=== PATIENT | female | born 1985 | race Caucasian/White ===

== ENCOUNTER 2016-04-29 10:51 | Emergency (ER) | payer MEDICAID ==
[2016-04-29] MEDS ORDERED: HYDROcod/ACETAM 5/325 MG TABLET ONE (12:37)
[2016-04-29] MEDS ORDERED: HYDROcod/ACETAM 5/325 MG TABLET PO STA (12:37)
== END 2016-04-29 12:51 | disposition home or self-care (01) ==
DX: S90.31XA Contusion of right foot, initial encounter (principal); S90.414A Abrasion, right lesser toe(s), initial encounter; W20.8XXA Other cause of strike by thrown, projected or falling object, initial encounter; Z85.71 Personal history of Hodgkin lymphoma
CPT/HCPCS: 73630; 99283; A9270

== ENCOUNTER 2016-09-06 10:57 | Emergency (ER) | payer MEDICAID ==
[2016-09-06 11:07] VITALS: BP 114/69
[2016-09-06 12:05] LABS: BILIRUBIN,URINE NEGATIVE (NEGATIVE)
[2016-09-06 12:06] LABS: UA CHARGE (STRIP ONLY) YES; UR CULTURE IF IND NOT INDICATED
[2016-09-06 12:08] LABS: HCG UR QUAL NEGATIVE
--- NOTE | 2016-09-06 14:04 | ED Physician Documentation ---
PD HPI BACK PAIN - Stated complaint Stated Complaint: BACK PX - Chief complaint Chief Complaint: Back Pain - History obtained from History obtained from: Patient - History of Present Illness Timing - onset: Other (30-year-old woman with left-sided mid back pain radiating to the left mid abdomen since yesterday, it is worse with twisting and with rotation to the right. It is not associated with fevers, nausea, night sweats. It does not change with eating. She has had no changes in her bowel movements or urinary complaints. No hematuria. No possibility of .No recent weight loss.) Review of Systems Constitutional: denies: Fever, Chills Cardiac: denies: Chest pain / pressure, Palpitations Respiratory: denies: Dyspnea, Cough GI: denies: Nausea, Vomiting, Constipation, Diarrhea, Hematemesis, Bloody / black stool : denies: Dysuria, Frequency PD PAST MEDICAL HISTORY - Past Medical History Past Medical History: Yes Psych: Depression, Anxiety Other Past Medical History: autoimmune disease. stage 4 hodgkin's lymphoma. kidney disease - Past Surgical History Past Surgical History: Yes - Present Medications Home Medications: Ambulatory Orders Medication Instructions Recorded Confirmed HYDROcod/ACETAM 5/325 [[place] 5/325] 1 - 2 ea PO Q6H PRN #10 tablet 04/29/16 Sertraline [Zoloft] 100 mg PO DAILY 04/29/16 04/29/16 Cyclobenzaprine [Flexeril] 10 mg PO TID PRN #20 tablet 09/06/16 HYDROcod/ACETAM 5/325 [[place] 5/325] 1 - 2 ea PO Q6H PRN #15 tablet 09/06/16 - Allergies Allergies/Adverse Reactions: Allergies Allergy/AdvReac Type Severity Reaction Status Date / Time Penicillins Allergy Unknown Verified 04/29/16 10:57 Sulfa (Sulfonamide Allergy Unknown Verified 04/29/16 10:57 Antibiotics) - Social History Does the pt smoke?: No Smoking Status: Never smoker Does the pt drink ETOH?: Yes Does the pt have substance abuse?: No - Immunizations Immunizations are current?: Yes PD ED PE NORMAL - Vitals Vital signs reviewed: Yes - General General: Alert and oriented X 3, No acute distress - Neck Neck: Supple, no meningeal sign, No bony TTP - Abdomen Abdomen: Normal bowel sounds, Soft, Non tender - Back Back: No spinal TTP, Other (She is tender to the upper lateral paralumbar muscles on the left which re-creates her pain.) - Extremities Extremities: Other (The patient has equal and normal Achilles and patellar reflexes bilaterally. Normal sensation in all areas of the legs. Patient denies saddle anesthesia. Normal strength in flexion-extension at the ankles, knees, and flexion of the hips.) - Neuro Neuro: Alert and oriented X 3, Normal speech - Psych Psych: Normal mood, Normal affect Results - Vitals Vitals: Vital Signs - 24 hr 09/06/16 11:05 Temperature 36.4 C L Heart Rate 108 H Respiratory 18 Rate Blood Pressure 114/69 O2 Saturation 97 Oxygen O2 Source Room air - Labs Labs: Laboratory Tests 09/06/16 11:35 Urine Color LIGHT YELLOW Urine Clarity CLEAR Urine pH 6.0 Ur Specific [place] <=1.005 Urine Protein NEGATIVE Urine Glucose (UA) NEGATIVE Urine Ketones NEGATIVE Urine Occult Blood NEGATIVE Urine Nitrite NEGATIVE Urine Bilirubin NEGATIVE Urine Urobilinogen 0.2 (NORMAL) Ur Leukocyte Esterase NEGATIVE Ur Microscopic Review NOT INDICATED Urine Culture Comments NOT INDICATED Urine HCG, Qual NEGATIVE PD MEDICAL DECISION MAKING - ED course ED course: 30-year-old woman presents with apparently muscular back pain of the left side, although it radiates to the abdomen, there is no abdominal tenderness or other symptoms to suggest intra-abdominal etiology. Departure - Departure Disposition: 01 Home, Self Care Clinical Impression: Muscle strain of left upper back Qualifiers: Encounter type: initial encounter Qualified Code(s): S29.012A - Strain of muscle and tendon of back wall of thorax, initial encounter Condition: Good Record reviewed to determine appropriate education?: Yes Instructions: ED Spasm Back No Trauma Prescriptions: Cyclobenzaprine [Flexeril] 10 mg PO TID PRN #20 tablet PRN Reason: Pain HYDROcod/ACETAM 5/325 [[place] 5/325] 1 - 2 ea PO Q6H PRN #15 tablet PRN Reason: Pain Comments: Call your doctor to arrange a follow-up appointment, make the next available appointment. In the interim, return anytime if worse or if new symptoms develop. Do not drink or drive while taking narcotic pain medication. Note that many narcotic pain relievers also contain Tylenol/acetaminophen. Please ensure that your total dose of acetaminophen from all sources does not exceed 3 g (3000 mg) per day. You may get constipated while on this medication. Take a stool softener such as Colace twice a day while you are on it. Also add an [id number] laxative such as senna or MiraLAX on any day that you do not have a bowel movement. If you received a narcotic pain medication or sedative while in the emergency department, do not drive for the next 24 hours.
== END 2016-09-06 14:20 | disposition home or self-care (01) ==
LOC: ED 10:57
DX: S29.012A Strain of muscle and tendon of back wall of thorax, initial encounter (principal); X58.XXXA Exposure to other specified factors, initial encounter; C81.90 Hodgkin lymphoma, unspecified, unspecified site; N28.9 Disorder of kidney and ureter, unspecified
CPT/HCPCS: 81001; 81003; 81025; 87086; 99283

== ENCOUNTER 2016-09-08 17:43 | Emergency (ER) | payer MEDICAID ==
[2016-09-08 17:51] VITALS: BP 114/75
--- NOTE | 2016-09-08 18:01 | ED Physician Documentation ---
History of Present Illness - Stated complaint Stated Complaint: LT SIDE PX/RASH - Chief complaint Chief Complaint: General - History obtained from History obtained from: Patient - History of Present Illness Timing: Other (Seen by me 2 days ago for left-sided back and flank pain that seemed muscular at the time, but today developed a rash in the affected area.) Review of Systems Constitutional: denies: Fever, Chills : denies: Now EGA Neurologic: denies: Generalized weakness, Focal weakness PD PAST MEDICAL HISTORY - Past Medical History Past Medical History: Yes Psych: Depression, Anxiety - Past Surgical History Past Surgical History: Yes - Present Medications Home Medications: Ambulatory Orders Medication Instructions Recorded Confirmed HYDROcod/ACETAM 5/325 [[place] 5/325] 1 - 2 ea PO Q6H PRN #10 tablet 04/29/16 Sertraline [Zoloft] 100 mg PO DAILY 04/29/16 04/29/16 Cyclobenzaprine [Flexeril] 10 mg PO TID PRN #20 tablet 09/06/16 HYDROcod/ACETAM 5/325 [[place] 5/325] 1 - 2 ea PO Q6H PRN #15 tablet 09/06/16 Acyclovir 800 mg PO 5XD 10 Days 09/08/16 HYDROcod/ACETAM 5/325 [[place] 5/325] 1 - 2 ea PO Q6H PRN #15 tablet 09/08/16 predniSONE [Deltasone] 20 mg PO [id number] #21 tab 09/08/16 - Allergies Allergies/Adverse Reactions: Allergies Allergy/AdvReac Type Severity Reaction Status Date / Time Penicillins Allergy Unknown Verified 09/08/16 17:49 Sulfa (Sulfonamide Allergy Unknown Verified 09/08/16 17:49 Antibiotics) - Social History Does the pt smoke?: No Smoking Status: Never smoker Does the pt drink ETOH?: Yes Does the pt have substance abuse?: No - Immunizations Immunizations are current?: Yes - POLST Patient has POLST: No PD ED PE NORMAL - Vitals Vital signs reviewed: Yes - General General: Alert and oriented X 3, No acute distress - Abdomen Abdomen: Normal bowel sounds, Soft, Non tender - Derm Derm: Other (Vesicular rash on a red base, mild and spotty in the left subcostal area radiating to the left upper quadrant.) - Neuro Neuro: Alert and oriented X 3, Normal speech - Psych Psych: Normal mood, Normal affect Results - Vitals Vitals: Vital Signs - 24 hr 09/08/16 17:46 Temperature 36 C L Heart Rate 86 Respiratory 18 Rate Blood Pressure 114/75 O2 Saturation 100 Oxygen O2 Source Room air PD MEDICAL DECISION MAKING - ED course ED course: The patient was counseled as to the diagnosis and need for follow-up. I counseled the patient with regard to signs and symptoms that would necessitate an urgent reevaluation in the emergency department. They understand they are welcome to return at any time if worse or if not improving as expected. This document was made in part using voice recognition software. While efforts are made to proofread this documents, sound alike and grammatical errors may occur. Departure - Departure Disposition: 01 Home, Self Care Clinical Impression: Herpes zoster Qualifiers: Herpes zoster complications: without complications Qualified Code(s): B02.9 - Zoster without complications Condition: Good Record reviewed to determine appropriate education?: Yes Instructions: ED Shingles Prescriptions: Acyclovir 800 mg PO 5XD 10 Days predniSONE [Deltasone] 20 mg PO [id number] #21 tab HYDROcod/ACETAM 5/325 [[place] 5/325] 1 - 2 ea PO Q6H PRN #15 tablet PRN Reason: Pain Comments: Call your doctor to arrange a follow-up appointment, make the next available appointment. In the interim, return anytime if worse or if new symptoms develop. Do not drink or drive while taking narcotic pain medication. Note that many narcotic pain relievers also contain Tylenol/acetaminophen. Please ensure that your total dose of acetaminophen from all sources does not exceed 3 g (3000 mg) per day. You may get constipated while on this medication. Take a stool softener such as Colace twice a day while you are on it. Also add an [id number]-[id number] laxative such as senna or MiraLAX on any day that you do not have a bowel movement. If you received a narcotic pain medication or sedative while in the emergency department, do not drive for the next 24 hours.
== END 2016-09-08 18:06 | disposition home or self-care (01) ==
LOC: ED 17:43
DX: B02.9 Zoster without complications (principal)
CPT/HCPCS: 99283

== ENCOUNTER 2016-09-14 08:05 | Emergency (ER) | payer MEDICAID ==
[2016-09-14] MEDS ORDERED: ACETAMINOPHEN 1,000 MG/100 ML 100 ML IV STA (08:59)
[2016-09-14] MEDS ORDERED: ONDANSETRON 4 MG/2 ML VIAL IVP STA ×2 (08:59→11:04)
[2016-09-14] MEDS ORDERED: SODIUM CHLORIDE 0.9% 1,000 ML IV ONE (08:59)
[2016-09-14] MEDS ORDERED: ONDANSETRON 4 MG/2 ML VIAL ONE ×2 (09:06→11:06)
[2016-09-14] MEDS ORDERED: ACETAMINOPHEN 1,000 MG/100 ML 100 ML IV ONE (09:06)
--- NOTE | 2016-09-14 09:24 | ED Physician Documentation ---
History of Present Illness - Stated complaint Stated Complaint: RASH / FEVER - Chief complaint Chief Complaint: General - Additonal information Additional information: hx from pt 30 female denies preg but breast feeding a 1yr+ toddler seens twice already for L flank pain, second visit dx shingles and rx ayclovir and prednisone which she has been taking states she is getting worse, rash continues to spread (still on single dermatome ), she has developed a fever to 101, she has NV, not taking PO and has a STARKEY seen at urgent care in [facility] yesterday and her acyclovir was changed to valtrex and she was adised to come back to the ER to be admotted for shingles failing outpt tx pt also notes 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 denies: Diarrhea : denies: Now EGA (denies) Neurologic: reports: Generalized weakness, Headache. denies: Focal weakness, Numbness, Head injury Endocrine: denies: Easy bruising / bleeding Immunocompromised: reports: Immunocompromised (funtional apslenia) PD PAST MEDICAL HISTORY - Past Medical History Psych: Depression, Anxiety - Past Surgical History Past Surgical History: Yes - Present Medications Home Medications: Ambulatory Orders Medication Instructions Recorded Confirmed Sertraline [Zoloft] 100 mg PO DAILY 04/29/16 09/14/16 HYDROcod/ACETAM 5/325 [[place] 5/325] 1 - 2 ea PO Q6H PRN #15 tablet 09/08/16 predniSONE [Deltasone] 20 mg PO [id number] #21 tab 09/08/16 09/14/16 Lidocaine Patch 5% [Lidoderm Patch] 1 each TOP DAILY PRN #10 patch 09/14/16 Ondansetron Odt [Zofran] 4 mg TL Q6H PRN #10 tablet 09/14/16 Oxycodone HCl/Acetaminophen 1 each PO Q6HR PRN #10 tablet 09/14/16 [Percocet 5-325 mg Tablet] Valacyclovir HCl [Valtrex] 1,000 mg PO 09/14/16 - Allergies Allergies/Adverse Reactions: Allergies Allergy/AdvReac Type Severity Reaction Status Date / Time Penicillins Allergy Unknown Verified 09/08/16 17:49 Sulfa (Sulfonamide Allergy Unknown Verified 09/08/16 17:49 Antibiotics) - Social History Does the pt smoke?: No Smoking Status: Never smoker Does the pt drink ETOH?: Yes Does the pt have substance abuse?: No - Immunizations Immunizations are current?: Yes - POLST Patient has POLST: No PD ED PE NORMAL - Vitals Vital signs reviewed: Yes - General General: Alert and oriented X 3 - HEENT HEENT: PERRL, Other (retching) - Neck Neck: Supple, no meningeal sign - Cardiac Cardiac: RRR - Respiratory Respiratory: No respiratory distress, Clear bilaterally - Abdomen Abdomen: Soft, Non tender, Other (classic shingle rash, red, crusted, unliateral from spine to umbilcus) - Derm Derm: Other (see abd exam, shingles L side approx T10, no fresh vesicles) - Neuro Neuro: Alert and oriented X 3, No motor deficit, No sensory deficit Results - Vitals Vitals: Vital Signs - 24 hr 09/14/16 09/14/16 08:14 10:20 Temperature 36.7 C 37.0 C Heart Rate 122 H 96 Respiratory 16 15 Rate Blood Pressure 127/86 H 121/65 O2 Saturation 99 94 Oxygen O2 Source Room air - Labs Labs: Laboratory Tests 09/14/16 09/14/16 09/14/16 09:35 09:35 09:35 WBC 13.2 H RBC 4.34 Hgb 12.9 Hct 39.5 MCV 91.0 MCH 29.7 MCHC 32.6 RDW 13.3 Plt Count 348 MPV 7.5 L Neut # 6.6 Lymph # 5.0 H [place] # 1.0 Eos # 0.5 Baso # 0.1 Absolute Nucleated RBC 0.00 Nucleated RBCs 0.0 Sodium 137 Potassium 3.7 Chloride 99 L Carbon Dioxide 30 Anion Gap 8.0 BUN 10 Creatinine 0.6 Estimated GFR (MDRD) 117 Glucose 88 Lactic Acid 1.5 Calcium 9.2 Serum HCG, Qual Urine Color Urine Clarity Urine pH Ur Specific [place] Urine Protein Urine Glucose (UA) Urine Ketones Urine Occult Blood Urine Nitrite Urine Bilirubin Urine Urobilinogen Ur Leukocyte Esterase Ur Microscopic Review Urine Culture Comments 09/14/16 09/14/16 09:35 11:31 WBC RBC Hgb Hct MCV MCH MCHC RDW Plt Count MPV Neut # Lymph # [place] # Eos # Baso # Absolute Nucleated RBC Nucleated RBCs Sodium Potassium Chloride Carbon Dioxide Anion Gap BUN Creatinine Estimated GFR (MDRD) Glucose Lactic Acid Calcium Serum HCG, Qual NEGATIVE Urine Color LT. YELLOW Urine Clarity CLEAR Urine pH 7.0 Ur Specific [place] <=1.005 Urine Protein NEGATIVE Urine Glucose (UA) NEGATIVE Urine Ketones NEGATIVE Urine Occult Blood NEGATIVE Urine Nitrite NEGATIVE Urine Bilirubin NEGATIVE Urine Urobilinogen 0.2 (NORMAL) Ur Leukocyte Esterase NEGATIVE Ur Microscopic Review NOT INDICATED Urine Culture Comments NOT INDICATED PD MEDICAL DECISION MAKING - ED course ED course: no other cause for fever STARKEY myalgias fatigue found on wup - no UTI, no cough or ronchi to suggest pna has a STARKEY but no neck stiffness, doubt she would progress to varicella meningitis while on anti-virals - to LP would have to go through or very near shingles band = more likely to cause than dx meningitis txed with IVF ofirmev toradol zofran and dilaudid - pt feeling better - may be able to dc pt feeling better willing to try going home with meds I will be here tomorrow if she feels worse Departure - Departure Disposition: 01 Home, Self Care Clinical Impression: Dehydration Herpes zoster Qualifiers: Herpes zoster complications: without complications Qualified Code(s): B02.9 - Zoster without complications Headache Qualifiers: Headache type: unspecified Headache chronicity pattern: unspecified pattern Intractability: not intractable Qualified Code(s): R51 - Headache Condition: Good Instructions: ED Dehydration, ED Cephalgia Unspecified, ED Shingles Prescriptions: Oxycodone HCl/Acetaminophen [Percocet 5-325 mg Tablet] 1 each PO Q6HR PRN #10 tablet PRN Reason: Severe Pain Lidocaine Patch 5% [Lidoderm Patch] 1 each TOP DAILY PRN #10 patch PRN Reason: Pain Ondansetron Odt [Zofran] 4 mg TL Q6H PRN #10 tablet PRN Reason: Nausea / Vomiting Comments: Continue your valtrex and prednsione I have also prescribed lidocaine patches (which can be worn 12 hr a day)and percocet for pain and zofran for vomiting No breast feeding until 48 hours after finishing the medications Forms: Activity restrictions
[2016-09-14 09:51] LABS: BASOPHILS # (AUTO) 0.1 10^3/uL (0.0-0.1); EOSINOPHILS # (AUTO) 0.5 10^3/uL (0.0-0.7); EOSINOPHILS % (AUTO) 3.6 %; HCT - HEMATOCRIT 39.5 % (37.0-47.0); HGB - HEMOGLOBIN 12.9 g/dL (12.0-16.0); LYMPHOCYTES % (AUTO) 37.6 %; MEAN CORPUSCULAR HEMOGLOBIN 29.7 pg (27.0-31.0); MEAN CORPUSCULAR HGB CONC 32.6 g/dL (32.0-36.0); MEAN PLATELET VOLUME 7.5 fL (7.9-10.8); MONOCYTES % (AUTO) 7.5 %; NEUTROPHILS # (AUTO) 6.6 10^3/uL (1.5-6.6); NEUTROPHILS % (AUTO) 50.3 %; RED BLOOD COUNT 4.34 10^6/uL (4.20-5.40); RED CELL DISTRIBUTION WIDTH 13.3 % (12.0-15.0); UNCORRECTED WHITE BLOOD COUNT 13.2 x10^3/uL; WHITE BLOOD COUNT 13.2 x10^3/uL (4.8-10.8)
[2016-09-14 09:59] LABS: CALCIUM 9.2 mg/dL (8.5-10.3); CREATININE 0.6 mg/dL (0.4-1.0); POTASSIUM 3.7 mmol/L (3.5-5.0)
[2016-09-14] MEDS ORDERED: MORPHINE 2 MG/ML SYRINGE IVP STA (10:03)
[2016-09-14] MEDS ORDERED: MORPHINE 2 MG/ML SYRINGE ONE (10:12)
[2016-09-14] MEDS ORDERED: HYDROmorphone 1 MG/ML SYRINGE IVP STA (10:47)
[2016-09-14] MEDS ORDERED: HYDROmorphone 1 MG/ML SYRINGE ONE (10:50)
[2016-09-14] MEDS ORDERED: KETOROLAC 60 MG/2 ML VIAL IVP STA (11:04)
[2016-09-14] MEDS ORDERED: LIDOCAINE PATCH 5% TOP STA (11:04)
[2016-09-14] MEDS ORDERED: LIDOCAINE PATCH 5% TOP ONE (11:06)
[2016-09-14] MEDS ORDERED: KETOROLAC 30 MG/ML VIAL ONE (11:06)
[2016-09-14 11:42] LABS: BILIRUBIN,URINE NEGATIVE (NEGATIVE)
[2016-09-14 11:45] LABS: UA CHARGE (STRIP ONLY) YES; UR CULTURE IF IND NOT INDICATED
[2016-09-14 13:11] VITALS: BP 114/56
== END 2016-09-14 13:16 | disposition home or self-care (01) ==
LOC: ED 08:05
DX: E86.0 Dehydration (principal); B02.9 Zoster without complications; R51 Headache
CPT/HCPCS: 36415; 80048; 81003; 83605; 84703; 85025; 87040; 96361; 96365; 96375; 96376; 99283; 99284; A9270; J0131; J1170; 81001; 87086

== ENCOUNTER 2016-09-14 20:19 | Observation (INO) | payer MEDICAID ==
--- NOTE | 2016-09-14 21:27 | ED Physician Documentation ---
PD HPI SKIN - Stated complaint Stated Complaint: SHINGLES - Chief complaint Chief Complaint: Wound - History obtained from History obtained from: Patient - History of Present Illness Timing - onset: How many weeks ago (02/22) Timing - duration: Weeks (02/22) Timing - details: Gradual onset, Still present (Initially with left lower back pain for 2-3 days without obvious cause, seen in ED 09/06 and Rx pain meds and muscle relaxant. Seen back 09/08 with developing rash and Dx shingles. Given Rx of Acyclovir. She continued with increasing density of rash in same band area and increased pain. Seen by PMD and changed Rx from Acyclovir to Valacycloivr and pain meds from hydrocodone to oxycodone. Started having nausea and vomiting , headache, and general malaise the past 2-3 days. Feeling generally weak and dehydrated. Seen in ED this morning and given IV fluids and meds for nausea/ pain. Feeling improved and wanted to try going home. Soon after discharge, started with vomiting and increased headache again. Unable to keep down meds for pain. Antiemetics not effective.) Location: Abdomen (back to umbilical area abdomen just on left side, very tender.) Quality / character: Painful, Vesicular. No: Swelling Associated symptoms: Fever (the past 1-2 days, felt feverish at home.), N/V/D ( no diarrhea, but nausea and vomiting the past 2-3 days.) Recently seen: Clinic, Emergency Dept Review of Systems Constitutional: reports: Fever, Chills, Myalgias, Fatigue Nose: denies: Rhinorrhea / runny nose, Congestion Throat: denies: Sore throat Cardiac: denies: Chest pain / pressure, Palpitations Respiratory: denies: Dyspnea, Cough GI: reports: Nausea, Vomiting. denies: Abdominal Pain, Diarrhea : denies: Dysuria, Frequency Skin: reports: Rash Musculoskeletal: denies: Neck pain, Back pain Neurologic: reports: Headache. denies: Focal weakness, Numbness, Confused, Altered mental status, Head injury PD PAST MEDICAL HISTORY - Past Medical History Cardiovascular: None Respiratory: None Neuro: None Endocrine/Autoimmune: None Psych: Depression, Anxiety Other Past Medical History: Prior non Hadgkins Lymphoma about 3 years ago. No recent treatment. - Past Surgical History Past Surgical History: Yes - Present Medications Home Medications: Ambulatory Orders Medication Instructions Recorded Confirmed Sertraline [Zoloft] 100 mg PO DAILY 04/29/16 09/14/16 HYDROcod/ACETAM 5/325 [[place] 5/325] 1 - 2 ea PO Q6H PRN #15 tablet 09/08/16 predniSONE [Deltasone] 20 mg PO [id number] #21 tab 09/08/16 09/14/16 Lidocaine Patch 5% [Lidoderm Patch] 1 each TOP DAILY PRN #10 patch 09/14/16 Ondansetron Odt [Zofran] 4 mg TL Q6H PRN #10 tablet 09/14/16 Oxycodone HCl/Acetaminophen 1 each PO Q6HR PRN #10 tablet 09/14/16 [Percocet 5-325 mg Tablet] Valacyclovir HCl [Valtrex] 1,000 mg PO 09/14/16 - Allergies Allergies/Adverse Reactions: Allergies Allergy/AdvReac Type Severity Reaction Status Date / Time Penicillins Allergy Unknown Verified 09/08/16 17:49 Sulfa (Sulfonamide Allergy Unknown Verified 09/08/16 17:49 Antibiotics) - Social History Does the pt smoke?: No Smoking Status: Never smoker Does the pt drink ETOH?: Yes Does the pt have substance abuse?: No - Family History Family history: reports: Non contributory - Immunizations Immunizations are current?: Yes - POLST Patient has POLST: No PD ED PE NORMAL - Vitals Vital signs reviewed: Yes - General General: Alert and oriented X 3, No acute distress, Well developed/nourished - HEENT HEENT: Ears normal, Pharynx benign - Neck Neck: Supple, no meningeal sign, No adenopathy - Cardiac Cardiac: RRR, No murmur - Respiratory Respiratory: Clear bilaterally - Abdomen Abdomen: Soft, Non tender - Back Back: No spinal TTP - Derm Derm: Normal color, Warm and dry, Other (left sided rash with vesicles, mostly dried, very tender. No purulence. It is in band from back around to front just below umbilicus (so about T11 level). 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 ) - Neuro Neuro: Alert and oriented X 3, No motor deficit, Normal speech, Other (no light sensitivity) - Psych Psych: Normal mood, Normal affect Results - Vitals Vitals: Vital Signs - 24 hr 09/14/16 09/14/16 20:24 23:22 Temperature 36.6 C Heart Rate 98 92 Respiratory 16 16 Rate Blood Pressure 122/75 128/80 O2 Saturation 99 100 Oxygen O2 Source Room air - Labs Labs: Laboratory Tests 09/14/16 22:42 WBC 13.1 H RBC 4.82 Hgb 14.3 Hct 43.5 MCV 90.4 MCH 29.7 MCHC 32.9 RDW 13.3 Plt Count 397 MPV 7.6 L Neut # 9.9 H Lymph # 2.7 [place] # 0.4 Eos # 0.1 Baso # 0.2 H Absolute Nucleated RBC 0.00 Nucleated RBCs 0.0 PD MEDICAL DECISION MAKING - ED course Complexity details: reviewed old records, reviewed results, considered differential (persistent vomiting could be side effect of medications (common side effect listed) as well as the headache. She does not seem meningitic. Consider herpetic cause, but I would be concerned about LP so close to area of rash. Give IV fluids and meds for nausea/pain. She has failed outpatient trial of meds and would talk with hospitalist to admit for ongoing care. ), d/w patient, d/w regional engagement consultant (Dr. Morris, Hospitalist) Departure - Departure Disposition: 66 [facility] DC/Xfer Clinical Impression: Herpes zoster Headache Qualifiers: Headache type: unspecified Headache chronicity pattern: acute headache Intractability: not intractable Qualified Code(s): R51 - Headache Intractable vomiting with nausea Qualifiers: Vomiting type: unspecified Qualified Code(s): R11.2 - Nausea with vomiting, unspecified Condition: Stable Record reviewed to determine appropriate education?: Yes
[2016-09-14] MEDS ORDERED: SODIUM CHLORIDE 0.9% 1,000 ML IV ONE (22:09)
[2016-09-14] MEDS ORDERED: ONDANSETRON 4 MG/2 ML VIAL IVP STA (22:09)
[2016-09-14] MEDS ORDERED: HYDROmorphone 1 MG/ML SYRINGE IVP STA (22:10)
[2016-09-14] MEDS ORDERED: KETOROLAC 60 MG/2 ML VIAL IVP STA (22:10)
[2016-09-14] MEDS ORDERED: ACYCLOVIR INJ 500 MG in SODIUM CHLORIDE 0.9% 250 ML IV STA (22:10)
[2016-09-14] MEDS ORDERED: KETOROLAC 30 MG/ML VIAL ONE (22:56)
[2016-09-14] MEDS ORDERED: HYDROmorphone 1 MG/ML SYRINGE ONE (22:57)
[2016-09-14] MEDS ORDERED: ONDANSETRON 4 MG/2 ML VIAL ONE (22:57)
[2016-09-14 23:20] LABS: BASOPHILS # (AUTO) 0.2 10^3/uL (0.0-0.1); BASOPHILS % (AUTO) 1.1 %; EOSINOPHILS # (AUTO) 0.1 10^3/uL (0.0-0.7); EOSINOPHILS % (AUTO) 0.5 %; HCT - HEMATOCRIT 43.5 % (37.0-47.0); HGB - HEMOGLOBIN 14.3 g/dL (12.0-16.0); LYMPHOCYTES # (AUTO) 2.7 10^3/uL (1.5-3.5); LYMPHOCYTES % (AUTO) 20.2 %; MEAN CORPUSCULAR HEMOGLOBIN 29.7 pg (27.0-31.0); MEAN CORPUSCULAR HGB CONC 32.9 g/dL (32.0-36.0); MEAN CORPUSCULAR VOLUME 90.4 fL (81.0-99.0); MEAN PLATELET VOLUME 7.6 fL (7.9-10.8); MONOCYTES # (AUTO) 0.4 10^3/uL (0.0-1.0); NEUTROPHILS # (AUTO) 9.9 10^3/uL (1.5-6.6); NEUTROPHILS % (AUTO) 75.2 %; RED BLOOD COUNT 4.82 10^6/uL (4.20-5.40); RED CELL DISTRIBUTION WIDTH 13.3 % (12.0-15.0); UNCORRECTED WHITE BLOOD COUNT 13.1 x10^3/uL; WHITE BLOOD COUNT 13.1 x10^3/uL (4.8-10.8)
[2016-09-14 23:31] LABS: ALBUMIN/GLOBULIN RATIO 1.3 (1.0-2.2); BILIRUBIN,TOTAL 0.8 mg/dL (0.2-1.0); CALCIUM 10.2 mg/dL (8.5-10.3); CREATININE 0.7 mg/dL (0.4-1.0); POTASSIUM 4.5 mmol/L (3.5-5.0); TOTAL PROTEIN 8.5 g/dL (6.7-8.2)
[2016-09-14] MEDS ORDERED: HYDROmorphone 1 MG/ML SYRINGE IVP PRN (23:56)
[2016-09-14] MEDS ORDERED: ONDANSETRON 4 MG/2 ML VIAL IVP PRN (23:56)
[2016-09-14] MEDS ORDERED: oxyCODONE 5 MG TABLET PO PRN (23:56)
[2016-09-14] MEDS ORDERED: SODIUM CHLORIDE FLUSH 0.9% 10 ML SYRINGE IVP PRN (23:56)
[2016-09-14] MEDS ORDERED: ZOLPIDEM 5 MG TABLET PO PRN (23:56)
[2016-09-14] MEDS ORDERED: ACETAMINOPHEN 325 MG TABLET PO PRN (23:56)
[2016-09-14] MEDS ORDERED: PROMETHAZINE 25 MG/1 ML VIAL IM PRN (23:56)
[2016-09-15] MEDS: PROCHLORPERAZINE 10 MG/2 ML VIAL IVP PRN ×3 (02:08→21:33)
[2016-09-15] MEDS: SODIUM CHLORIDE 0.9% 1,000 ML IV SCH ×2 (02:08→14:56)
[2016-09-15] MEDS: SODIUM CHLORIDE FLUSH 0.9% 10 ML SYRINGE IVP SCH ×3 (02:43→21:29)
[2016-09-15 05:10] LABS: BASOPHILS # (AUTO) 0.1 10^3/uL (0.0-0.1); BASOPHILS % (AUTO) 0.8 %; EOSINOPHILS # (AUTO) 0.2 10^3/uL (0.0-0.7); EOSINOPHILS % (AUTO) 1.3 %; HCT - HEMATOCRIT 39.9 % (37.0-47.0); MEAN CORPUSCULAR HEMOGLOBIN 29.9 pg (27.0-31.0); MEAN CORPUSCULAR HGB CONC 32.6 g/dL (32.0-36.0); MEAN CORPUSCULAR VOLUME 91.6 fL (81.0-99.0); MEAN PLATELET VOLUME 7.3 fL (7.9-10.8); MONOCYTES # (AUTO) 0.9 10^3/uL (0.0-1.0); MONOCYTES % (AUTO) 7.3 %; NEUTROPHILS # (AUTO) 7.3 10^3/uL (1.5-6.6); NEUTROPHILS % (AUTO) 58.6 %; NUCLEATED RED BLOOD CELLS AUTO 0.1 /100WBC; RED BLOOD COUNT 4.35 10^6/uL (4.20-5.40); RED CELL DISTRIBUTION WIDTH 13.4 % (12.0-15.0); UNCORRECTED WHITE BLOOD COUNT 12.5 x10^3/uL; WHITE BLOOD COUNT 12.5 x10^3/uL (4.8-10.8)
[2016-09-15 05:15] LABS: INR 1.1 (0.8-1.2); PT - PROTHROMBIN TIME 12.5 secs (9.9-12.6)
[2016-09-15 05:23] LABS: ALBUMIN/GLOBULIN RATIO 1.1 (1.0-2.2); BILIRUBIN,TOTAL 0.7 mg/dL (0.2-1.0); CALCIUM 9.2 mg/dL (8.5-10.3); CREATININE 0.5 mg/dL (0.4-1.0); PHOSPHORUS 3.8 mg/dL (2.5-4.6); POTASSIUM 4.3 mmol/L (3.5-5.0); TOTAL PROTEIN 7.1 g/dL (6.7-8.2)
--- NOTE | 2016-09-15 05:36 | HISTORY & PHYSICAL EXAMINATION ---
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 Patient states that she was in her normal state of health until 1 week ago when she presented to the ED with complaint of severe back pain in the mid back area. Patient was found to have a shingles rash on her back and was sent home with medication for pain control and acyclovir. After 5 days of acyclovir the patient continued to get new shingles lesions and saw her PCP just the other day who switched her over to valacyclovir. She states she took 1 dose last night and then when she woke up this morning she states she had a severe headache and felt nauseated. She vomited in the morning and was having photophobia but denied any neck stiffness. She states she was also having chills and felt warm. She came to the ED this morning and was treated for her symptoms and given IV fluids for hydration she felt better and was discharged home. After returning home her headache returned and when she tried to eat something vomited again and could not keep anything down so returned to the ED. The patient denies any focal neurologic deficits. She denies any chest pain, shortness of air, cough, abdominal pain other than where her shingles rash is or urinary symptoms. On presentation to the ED patients vital signs were stable but she was found to have a persistent shingles rash which was still only on the left side to midline in the lumbar distribution and did not appear to be disseminated. Given the patients leukocytosis and headache there was some concern for possible viral meningitis but the ED physicians did not feel comfortable doing an LP as patient had active shingles in area over spine. Patient continued to have intractable vomiting and headache in the ED and was placed in obs overnight for further hydration and symptoms management. She was started on IV acyclovir. Review of Systems - Other Findings Other Findings: A comprehensive review of systems was performed and all the pertinent positives and negatives are stated above in the HPI. History - Past Medical History Cardiovascular: reports: None Respiratory: reports: None Neuro: reports: None Endocrine/Autoimmune: reports: None Psych: reports: Depression, Anxiety MRSA Hx?: No Other Past Medical History: Prior Stage 4 Hodgkins Lymphoma about 3 years ago s/ p chemo and radiation. Unspecified Autoimmune disorder. Hiostory of Pneumonia. defect of left arm. Minimal Change Disease. - Family & Social History Family History: Mother: Hypertension, Father: Diabetes, Type 2, Other family: Cancer (Grandmother Breast Cancer) Living arrangement: At home Living Situation: With spouse/s.o. Social History Notes: Patient lives in [place] with her and son. They moved to [place] from [place] 3 years ago after the patient completed treatement for her lymphoma. They have a 1 year old son. The patient has never smoked and only occasionaly drinks alcohol. No drug use. - Substance History Use: Uses substance without health or social issues: NONE Abuse: Recurrent use of substance despite neg consequences: NONE Dependence: Experiences withdrawal or developed tolerances: NONE - POLST Patient has POLST: No POLST Status: Full Code Meds/Allgy - Home Medications Home Medications: Ambulatory Orders Medication Instructions Recorded Confirmed Sertraline [Zoloft] 100 mg PO DAILY 04/29/16 09/14/16 HYDROcod/ACETAM 5/325 [Doran 5/325] 1 - 2 ea PO Q6H PRN #15 tablet 09/08/16 predniSONE [Deltasone] 20 mg PO [id number] #21 tab 09/08/16 09/14/16 Lidocaine Patch 5% [Lidoderm Patch] 1 each TOP DAILY PRN #10 patch 09/14/16 Ondansetron Odt [Zofran] 4 mg TL Q6H PRN #10 tablet 09/14/16 Oxycodone HCl/Acetaminophen 1 each PO Q6HR PRN #10 tablet 09/14/16 [Percocet 5-325 mg Tablet] Valacyclovir HCl [Valtrex] 1,000 mg PO 09/14/16 - Allergies Allergies/Adverse Reactions: Allergies Allergy/AdvReac Type Severity Reaction Status Date / Time Penicillins Allergy Unknown Verified 09/08/16 17:49 Sulfa (Sulfonamide Allergy Unknown Verified 09/08/16 17:49 Antibiotics) Exam - Vital Signs Reviewed Vital Signs: Yes Vital Signs: Vital Signs x48h Temp Pulse Pulse Resp BP BP Pulse Ox 09/15/16 03:54 37.0 C 74 14 106/64 95 09/15/16 01:28 36.4 C L 88 18 121/72 98 - Physical Exam General Appearance: positive: Alert, Mild distress (Holding head, nauseated) Eyes Bilateral: positive: Normal inspection, PERRL, EOMI, No lid inflammation, Conjunctivae nml, No scleral icterus ENT: positive: ENT inspection nml, Pharynx nml, No signs of dehydration. negative: Purulent nasal drainage Neck: positive: Nml inspection, Thyroid nml, No JVD, Trachea midline. negative : Thyromegaly, Lymphadenopathy (R), Lymphadenopathy (L), Carotid bruit, Tracheal deviation Respiratory: positive: Chest non-tender, No respiratory distress, Breath sounds nml. negative: Wheezes, Rales, Rhonchi Cardiovascular: positive: Regular rate & rhythm, No murmur, No gallop Peripheral Pulses: positive: 2+ Abdomen: positive: Non-tender, No organomegaly, Nml bowel sounds, No distention. negative: Guarding, Rebound, Hepatomegaly Back: positive: Other (Shingles rash just above the umbilicus at T11 on left side not crossing midline with vesicles (dried and active)). negative: CVA tenderness (R), CVA tenderness (L) Skin: positive: Skin rash (Shingles rash just above the umbilicus at T11 on left side not crossing midline with vesicles (dried and active)). negative: Cyanosis, Pallor Extremities: positive: Non-tender, Full ROM, No pedal edema, Other (Congential deformity of the left arm with shortnenoing to just the distal elbow.) Neurologic/Psychiatric: positive: Oriented x3, CN's nml (2-12), Motor nml, Sensation nml, Mood/affect nml. negative: Weakness, Sensory loss, Facial droop Conclusion/Plan - Problem List (1) Intractable vomiting with nausea Conclusion/Plan: Likely secondary to severe headache possible due to viral meningitis versus GI viral illness Patient unable to keep medication down She was sent home earlier in the day but returned to ED Continues to have intractable nausea and vomiting despite several doses of IV antiemetics in the ED Plan: IVFs IV antiemetics Monitor Qualifiers: Vomiting type: unspecified Qualified Code(s): R11.2 - Nausea with vomiting , unspecified (2) Headache Conclusion/Plan: Given leukocytosis, headache, photophobia with recent history of shingles rash this headaches is concerning for possible viral meningitis No LP done secondary to shingles rash being over area where LP would be performed Photophobia but no neck stiffness Plan: Treat with tylenol, IVFs and pain meds If not improving overnight will need to do CT head and consider LP in the morning Qualifiers: Headache type: unspecified Headache chronicity pattern: acute headache Intractability: not intractable Qualified Code(s): R51 - Headache (3) Herpes zoster Conclusion/Plan: Appears to be covering just one dermatome and does not cross midline from the left side Has not had any improvement after 1 week of acyclovir PO Place on IV acyclovir, neurontin and oxycodone for symptom management Monitor - Lab Results Lab results reviewed: Yes Fish Bones: 09/14/16 22:42 09/14/16 22:42 Other Lab Results: Laboratory Results WBC 13.1 x10^3/uL (4.8-10.8) H 09/14/16 22:42 RBC 4.82 10^6/uL (4.20-5.40) 09/14/16 22:42 Hgb 14.3 g/dL (12.0-16.0) 09/14/16 22:42 Hct 43.5 % (37.0-47.0) 09/14/16 22:42 MCV 90.4 fL (81.0-99.0) 09/14/16 22:42 MCH 29.7 pg (27.0-31.0) 09/14/16 22:42 MCHC 32.9 g/dL (32.0-36.0) 09/14/16 22:42 RDW 13.3 % (12.0-15.0) 09/14/16 22:42 Plt Count 397 10^3/uL (130-450) 09/14/16 22:42 MPV 7.6 fL (7.9-10.8) L 09/14/16 22:42 Neut # 9.9 10^3/uL (1.5-6.6) H 09/14/16 22:42 Lymph # 2.7 10^3/uL (1.5-3.5) 09/14/16 22:42 [place] # 0.4 10^3/uL (0.0-1.0) 09/14/16 22:42 Eos # 0.1 10^3/uL (0.0-0.7) 09/14/16 22:42 Baso # 0.2 10^3/uL (0.0-0.1) H 09/14/16 22:42 Absolute Nucleated RBC 0.00 x10^3/uL 09/14/16 22:42 Nucleated RBCs 0.0 /100WBC 09/14/16 22:42 ESR 4 mm/Hr (0-20) 09/14/16 22:42 PT 12.5 secs (9.9-12.6) 09/14/16 05:00 INR 1.1 (0.8-1.2) 09/14/16 05:00 Sodium 137 mmol/L (135-145) 09/14/16 22:42 Potassium 4.5 mmol/L (3.5-5.0) 09/14/16 22:42 Chloride 97 mmol/L (101-111) L 09/14/16 22:42 Carbon Dioxide 29 mmol/L (21-32) 09/14/16 22:42 Anion Gap 11.0 (6-13) 09/14/16 22:42 BUN 12 mg/dL (6-20) 09/14/16 22:42 Creatinine 0.7 mg/dL (0.4-1.0) 09/14/16 22:42 Estimated GFR (MDRD) 98 (>89) 09/14/16 22:42 Glucose 92 mg/dL (70-100) 09/14/16 22:42 Lactic Acid 0.7 mmol/L (0.5-2.2) 09/14/16 05:00 Calcium 10.2 mg/dL (8.5-10.3) 09/14/16 22:42 Phosphorus 3.8 mg/dL (2.5-4.6) 09/14/16 05:00 Magnesium 2.0 mg/dL (1.7-2.8) 09/14/16 05:00 Total Bilirubin 0.8 mg/dL (0.2-1.0) 09/14/16 22:42 AST 29 IU/L (10-42) 09/14/16 22:42 ALT 32 IU/L (10-60) 09/14/16 22:42 Alkaline Phosphatase 85 IU/L (42-121) 09/14/16 22:42 Total Protein 8.5 g/dL (6.7-8.2) H 09/14/16 22:42 Albumin 4.8 g/dL (3.2-5.5) 09/14/16 22:42 Globulin 3.7 g/dL (2.1-4.2) 09/14/16 22:42 Albumin/Globulin Ratio 1.3 (1.0-2.2) 09/14/16 22:42 Lipase 28 U/L (22-51) 09/14/16 22:42 Issues/Core Measures - Anticipated LOS Anticipated Stay Length: Less than 2 midnights - DVT/VTE - Prophylaxis VTE/DVT Prophylaxis med ordered at admit?: Yes
[2016-09-15] MEDS: GABAPENTIN 300 MG CAPSULE PO SCH ×3 (05:53→21:25)
[2016-09-15] MEDS: PANTOPRAZOLE 40 MG TABLET PO SCH (05:53)
[2016-09-15] MEDS: oxyCODONE 5 MG TABLET PO PRN ×3 (05:54→19:03)
--- NOTE | 2016-09-15 05:59 | ED Physician Documentation ---
ED Addendum - Addendum Addendum: 09/15/16 05:59 unscheduled return visit - chart accessed for follow up and educational purposes
[2016-09-15] MEDS: ACYCLOVIR INJ 900 MG in SODIUM CHLORIDE 0.9% 250 ML IV SCH ×3 (08:28→21:29)
--- NOTE | 2016-09-15 08:57 | PROVIDER PROGRESS NOTE ---
Assessment/Plan - Problem List (1) Herpes zoster Qualifiers: Herpes zoster complications: unspecified herpes zoster complication Qualified Code(s): B02.8 - Zoster with other complications Assessment/Plan: acute. continue with Acyclovir iV and monitor WBC and CMP daily labs. pain management with iV and oral pain meds. patient is on multiple pain medications at home. Zofran for nausea (2) Intractable vomiting with nausea Qualifiers: Vomiting type: unspecified Qualified Code(s): R11.2 - Nausea with vomiting , unspecified Assessment/Plan: acute. IVF with normal saline for gentle hydration and continue with zofran for nausea and phenergan IV for vomiting. monitor electrolytes daily with labs (3) Headache Qualifiers: Headache type: unspecified Headache chronicity pattern: acute headache Intractability: not intractable Qualified Code(s): R51 - Headache Assessment/Plan: acute. resolving. this may related to the zoster outbreak. she is on multiple pain medications and IVF for hydration. will monitor neurologic status. (4) Autoimmune disease Assessment/Plan: chronic. SED rate and CRP both within normal range and no acute inflammation - Current Meds Current Meds: Current Medications Generic Name Dose Route Start Last Admin Trade Name Freq PRN Reason Stop Dose Admin Gabapentin 300 mg 09/15/16 06:00 09/15/16 05:53 Neurontin PO 300 mg TID JESUS Administration Sodium Chloride 1,000 mls @ 100 mls/hr 09/14/16 23:45 09/15/16 02:08 Normal Saline 0.9% IV 100 mls/hr .Q10H JESUS Administration Acyclovir 900 mg/ Sodium 268 mls @ 250 mls/hr 09/15/16 06:00 09/15/16 08:28 Chloride IV 250 mls/hr TID JESUS Administration Oxycodone HCl 5 mg 09/14/16 23:56 09/15/16 05:54 Roxicodone PO 5 mg Q4HR PRN Administration Pain 5 to 7 Pantoprazole Sodium 40 mg 09/15/16 07:00 09/15/16 05:53 Protonix PO 40 mg QDAC JESUS Administration Prochlorperazine Edisylate 10 mg 09/14/16 23:56 09/15/16 02:08 Compazine Inj IVP 10 mg Q6HR PRN Administration Nausea / Vomiting Sodium Chloride 10 ml 09/15/16 06:00 09/15/16 02:43 Normal Saline Flush 0.9% IVP Not Given Q8HR JESUS - Lab Result Lab results reviewed: Yes Fish Bone Diagrams: 09/14/16 22:42 09/14/16 22:42 Other Lab Results: Abnormal Lab Results 09/14/16 09/14/16 09/14/16 05:00 22:42 22:42 WBC 12.5 x10^3/uL H x10^3/uL 13.1 x10^3/uL H x10^3/uL (4.8-10.8) (4.8-10.8) MPV 7.3 fL L fL 7.6 fL L fL (7.9-10.8) (7.9-10.8) Neut # 7.3 10^3/uL H 10^3/uL 9.9 10^3/uL H 10^3/uL (1.5-6.6) (1.5-6.6) Lymph # 4.0 10^3/uL H 10^3/uL (1.5-3.5) Baso # 0.2 10^3/uL H 10^3/uL (0.0-0.1) Chloride 97 mmol/L L mmol/L (101-111) Total Protein 8.5 g/dL H g/dL (6.7-8.2) - EKG Results EKG Interpreted Independently: No - Additional Planning Condition/Complexity: Stable My Orders: My Active Orders 09/15/16 GARRICK SCREEN W REFLEX TITER [REFLAB] Stat CRP - C-REACTIVE PROTEIN [CHEM] Stat ESR- ERYTHROCYTE SEDIMENT RATE [HEME] Stat MAGNESIUM [CHEM] Stat 09/15/16 08:37 UA w/ MICROSCOPIC, CULT IF [URIN] Stat Plan Discussed with:: Patient, Spouse, Case Management Time Spent: 31-60 minutes Additional Planning Notes: patient will need another 24 hours since she still has pain around abdomen with nausea resolving. She is high risk for toxicity with IV medications and additonal diagnostics expected. Subjective - Subjective Patient Reports: Resting Comfortably, Nausea, Other (has severe fatigue and headache resolving. nausea is improving.) Nursing Reports: Nausea (denies chest pain or shortness of breath. pain to left mid abdomen with itching) Objective Vital Signs: Vital Signs - 24 hr 09/15/16 09/15/16 09/15/16 01:28 03:54 08:00 Temperature 36.4 C L 37.0 C 36.7 C Heart Rate 88 Heart Rate [ 74 Radial] Respiratory 18 14 Rate Blood Pressure 121/72 Blood Pressure 106/64 [Right Brachial artery] O2 Saturation 98 95 09/15/16 08:16 Temperature Heart Rate Heart Rate [ 84 Radial] Respiratory 16 Rate Blood Pressure Blood Pressure 100/74 [Right Brachial artery] O2 Saturation 97 Oxygen O2 Source Nasal cannula I&O (Last 24 Hrs): Intake and Output Totals x24h 09/13/16 09/14/16 09/15/16 23:59 23:59 23:59 Intake Total 350 Output Total 150 Balance 200 General: Alert, Oriented x3, Cooperative, No acute distress HEENT: PERRLA, EOMI Neck: Supple, No JVD, No thyromegaly Neuro: Alert, CN 2-12 Grossly Intact, Oriented Times 3 Cardiovascular: Regular rate, Normal S1, Normal S2 Respiratory: Chest non-tender, No respiratory distress, Breath sounds nml Abdomen: Normal bowel sounds, Soft, No hepatospenomegaly (pain with palpation to left side around rash) Genitourinary: No Bleeding, No Discharge Rectal: Stool - Heme NEG Extremities: No clubbing, No cyanosis, No edema, Normal pulses, No tenderness/ swelling Skin: No breakdown, No significant lesion Comments/Notes: rash with pain that radiates along dermatome from mid back to front left mid abdomen - Results Results: Laboratory Results WBC 13.1 x10^3/uL (4.8-10.8) H 09/14/16 22:42 RBC 4.82 10^6/uL (4.20-5.40) 09/14/16 22:42 Hgb 14.3 g/dL (12.0-16.0) 09/14/16 22:42 Hct 43.5 % (37.0-47.0) 09/14/16 22:42 MCV 90.4 fL (81.0-99.0) 09/14/16 22:42 MCH 29.7 pg (27.0-31.0) 09/14/16 22:42 MCHC 32.9 g/dL (32.0-36.0) 09/14/16 22:42 RDW 13.3 % (12.0-15.0) 09/14/16 22:42 Plt Count 397 10^3/uL (130-450) 09/14/16 22:42 MPV 7.6 fL (7.9-10.8) L 09/14/16 22:42 Neut # 9.9 10^3/uL (1.5-6.6) H 09/14/16 22:42 Lymph # 2.7 10^3/uL (1.5-3.5) 09/14/16 22:42 [place] # 0.4 10^3/uL (0.0-1.0) 09/14/16 22:42 Eos # 0.1 10^3/uL (0.0-0.7) 09/14/16 22:42 Baso # 0.2 10^3/uL (0.0-0.1) H 09/14/16 22:42 Absolute Nucleated RBC 0.00 x10^3/uL 09/14/16 22:42 Nucleated RBCs 0.0 /100WBC 09/14/16 22:42 ESR 4 mm/Hr (0-20) 09/14/16 22:42 PT 12.5 secs (9.9-12.6) 09/14/16 05:00 INR 1.1 (0.8-1.2) 09/14/16 05:00 Sodium 137 mmol/L (135-145) 09/14/16 22:42 Potassium 4.5 mmol/L (3.5-5.0) 09/14/16 22:42 Chloride 97 mmol/L (101-111) L 09/14/16 22:42 Carbon Dioxide 29 mmol/L (21-32) 09/14/16 22:42 Anion Gap 11.0 (6-13) 09/14/16 22:42 BUN 12 mg/dL (6-20) 09/14/16 22:42 Creatinine 0.7 mg/dL (0.4-1.0) 09/14/16 22:42 Estimated GFR (MDRD) 98 (>89) 09/14/16 22:42 Glucose 92 mg/dL (70-100) 09/14/16 22:42 Lactic Acid 0.7 mmol/L (0.5-2.2) 09/14/16 05:00 Calcium 10.2 mg/dL (8.5-10.3) 09/14/16 22:42 Phosphorus 3.8 mg/dL (2.5-4.6) 09/14/16 05:00 Magnesium 2.0 mg/dL (1.7-2.8) 09/14/16 05:00 Total Bilirubin 0.8 mg/dL (0.2-1.0) 09/14/16 22:42 AST 29 IU/L (10-42) 09/14/16 22:42 ALT 32 IU/L (10-60) 09/14/16 22:42 Alkaline Phosphatase 85 IU/L (42-121) 09/14/16 22:42 Total Protein 8.5 g/dL (6.7-8.2) H 09/14/16 22:42 Albumin 4.8 g/dL (3.2-5.5) 09/14/16 22:42 Globulin 3.7 g/dL (2.1-4.2) 09/14/16 22:42 Albumin/Globulin Ratio 1.3 (1.0-2.2) 09/14/16 22:42 Lipase 28 U/L (22-51) 09/14/16 22:42
[2016-09-15 10:02] LABS: MAGNESIUM 2.1 mg/dL (1.7-2.8)
[2016-09-15] MEDS: ENOXAPARIN 40 MG/0.4 ML SYRINGE SUBQ SCH (10:18)
[2016-09-15] MEDS: POLYETHYLENE GLYCOL 3350 17 GM PACKET PO SCH (10:19)
[2016-09-15 11:41] LABS: BILIRUBIN,URINE NEGATIVE (NEGATIVE)
[2016-09-15 11:50] LABS: UR CULTURE IF IND NOT INDICATED; WBC,URINE 0-3 /HPF (0-5)
[2016-09-16] MEDS: SODIUM CHLORIDE 0.9% 1,000 ML IV SCH (01:54)
[2016-09-16 05:03] LABS: BASOPHILS # (AUTO) 0.1 10^3/uL (0.0-0.1); BASOPHILS % (AUTO) 0.9 %; EOSINOPHILS % (AUTO) 0.1 %; HCT - HEMATOCRIT 38.4 % (37.0-47.0); LYMPHOCYTES # (AUTO) 1.6 10^3/uL (1.5-3.5); LYMPHOCYTES % (AUTO) 19.4 %; MEAN CORPUSCULAR HEMOGLOBIN 30.6 pg (27.0-31.0); MEAN CORPUSCULAR HGB CONC 33.7 g/dL (32.0-36.0); MEAN CORPUSCULAR VOLUME 90.7 fL (81.0-99.0); MEAN PLATELET VOLUME 7.2 fL (7.9-10.8); MONOCYTES # (AUTO) 0.1 10^3/uL (0.0-1.0); MONOCYTES % (AUTO) 1.5 %; NEUTROPHILS # (AUTO) 6.4 10^3/uL (1.5-6.6); NEUTROPHILS % (AUTO) 78.1 %; NUCLEATED RED BLOOD CELLS AUTO 0.1 /100WBC; RED BLOOD COUNT 4.24 10^6/uL (4.20-5.40); RED CELL DISTRIBUTION WIDTH 13.3 % (12.0-15.0); UNCORRECTED WHITE BLOOD COUNT 8.2 x10^3/uL; WHITE BLOOD COUNT 8.2 x10^3/uL (4.8-10.8)
[2016-09-16 05:09] LABS: ALBUMIN/GLOBULIN RATIO 1.2 (1.0-2.2); BILIRUBIN,TOTAL 0.8 mg/dL (0.2-1.0); CALCIUM 9.1 mg/dL (8.5-10.3); CREATININE 0.5 mg/dL (0.4-1.0); POTASSIUM 4.3 mmol/L (3.5-5.0); TOTAL PROTEIN 7.4 g/dL (6.7-8.2)
[2016-09-16] MEDS: SODIUM CHLORIDE FLUSH 0.9% 10 ML SYRINGE IVP SCH (05:36)
[2016-09-16] MEDS: ACYCLOVIR INJ 900 MG in SODIUM CHLORIDE 0.9% 250 ML IV SCH (06:19)
[2016-09-16] MEDS: GABAPENTIN 300 MG CAPSULE PO SCH (06:48)
[2016-09-16] MEDS: PANTOPRAZOLE 40 MG TABLET PO SCH (06:48)
[2016-09-16 07:42] VITALS: BP 117/80
--- NOTE | 2016-09-16 07:44 | Discharge Plan ---
Discharge Plan Disposition: Home, Self Care Condition: Stable Prescriptions: Acyclovir 900 mg PO TID #21 tablet Saccharomyces Boulardii [Florastor] 250 mg PO BID #60 capsule Diet: Regular (avoid gluten and dairy, these can cause inflammation and worsen your immune system with autoimmune disease) Activity Restrictions: Activity as Tolerated Shower Restrictions: No Driving Restrictions: No Weight Bearing: Full Weight Instruction Topics: ED Shingles, Shingles Herpes Zoster Additional Instructions or Follow Up instructions: You have been diagnosed with a shingles outbreak that is exacerbated by your weakened immune system and triggered by the stress over the last few weeks. Please continue to take home medications as prescribed. You have been given a probiotic and antiviral medication prescriptions. please finish them. You need to stay on the probiotics daily. Continue to get enough sleep. 7-8 hours a night is recommended. Rest as needed. Exercise daily is important for mood and for your immune system. Walking is a great way to get exercise. 30 minutes daily is recommended for optimal health Avoid drinking soda and limit caffeine. Avoid gluten, dairy and refined sugar. All these products can worsen an autoimmune disorder. Please followup with your director marketing communications and primary care provider within 1 week of discharge. No Smoking: If you smoke, Please STOP! Call for help.
--- NOTE | 2016-09-16 07:52 | DISCHARGE SUMMARY ---
"Discharge Summary Admit Date: 09/14/16 Discharge Date: 09/16/16 Discharging Provider: Kyara Garcia APRN Code Status: Attempt Resuscitation Condition at Discharge: Good Discharge Disposition: 01 Home, Self Care Discharge Facility Name: Home - DIAGNOSES Admission Diagnoses: 1. Intractable nausea and vomiting 2. ACute headache, unspecified 3. Herpes zoster with shingles across left flank Discharge Diagnoses with Status of Each Condition: 1. Acute herpes zoster outbreak with shingles across left flank 2. Acute nausea and vomiting with migraine headache frontal 3. Acute febrile illness, with shingles to right lumbar region of the back 4. 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 Patient states that she was in her normal state of health until 1 week ago when she presented to the ED with complaint of severe back pain in the mid back area. Patient was found to have a shingles rash on her back and was sent home with medication for pain control and acyclovir. After 5 days of acyclovir the patient continued to get new shingles lesions and saw her PCP just the other day who switched her over to valacyclovir. She states she took 1 dose last night and then when she woke up this morning she states she had a severe headache and felt nauseated. She vomited in the morning and was having photophobia but denied any neck stiffness. She states she was also having chills and felt warm. She came to the ED this morning and was treated for her symptoms and given IV fluids for hydration she felt better and was discharged home. After returning home her headache returned and when she tried to eat something vomited again and could not keep anything down so returned to the ED. The patient denies any focal neurologic deficits. She denies any chest pain, shortness of air, cough, abdominal pain other than where her shingles rash is or urinary symptoms. On presentation to the ED patients vital signs were stable but she was found to have a persistent shingles rash which was still only on the left side to midline in the lumbar distribution and did not appear to be disseminated. Given the patients leukocytosis and headache there was some concern for possible viral meningitis but the ED physicians did not feel comfortable doing an LP as patient had active shingles in area over spine. Patient continued to have intractable vomiting and headache in the ED and was placed in obs overnight for further hydration and symptoms management. She was started on IV acyclovir. 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 She was admitted on IV Acyclovir for persistet shingles rash on the left side to midline in lumbar region. Her headache was treated with IV morphine and zofran for nausea. She had vomiting at admission that resolved with IVF and zofran and phenergan. She had no neurologic deficits. She remained on all her home medications for depression, autoimmune, pain. She had daily lab draws to monitor her electrolytes and hemoglobin and white count. Autoimmune panels were ordered to rule out other reasons for rash. On day of discharge she was with no headache, rash improving and wanting to go home. Patients was going to take her home. She will be sent home on Acyclovir, pain medications and Zofran for nausea - ALLERGIES Allergies/Adverse Reactions: Allergies Allergy/AdvReac Type Severity Reaction Status Date / Time Penicillins Allergy Unknown Verified 09/08/16 17:49 Sulfa (Sulfonamide Allergy Unknown Verified 09/08/16 17:49 Antibiotics) - MEDICATIONS Home Medications: Ambulatory Orders Medication Instructions Recorded Confirmed Sertraline [Zoloft] 100 mg PO DAILY 04/29/16 09/15/16 Acyclovir 900 mg PO TID #21 tablet 09/16/16 Gabapentin 300 mg PO TID #30 capsule 09/16/16 Gabapentin [Neurontin] 300 mg PO TID capsule 09/16/16 Pantoprazole [Protonix] 40 mg ORAL DAILY #10 tablet 09/16/16 Pantoprazole [Protonix] 40 mg PO QDAC tablet 09/16/16 Saccharomyces Boulardii [Florastor] 250 mg PO BID #60 capsule 09/16/16 Zolpidem [Ambien] 5 mg PO QPM PRN #0 tablet 09/16/16 oxyCODONE [Roxicodone] 5 mg PO Q4-6H #28 tablet 09/16/16 oxyCODONE [Roxicodone] 5 mg PO Q4HR PRN #0 tablet 09/16/16 oxyCODONE [Roxicodone] 10 mg PO Q4HR PRN #0 tablet 09/16/16 predniSONE [Deltasone] 20 mg PO DAILYWM tablet 09/16/16 - PHYSICAL EXAM AT DISCHARGE General Appearance: positive: No acute distress, Alert Eyes Bilateral: positive: Normal inspection, PERRL ENT: positive: ENT inspection nml, Pharynx nml, No signs of dehydration Neck: positive: Nml inspection, Thyroid nml, No JVD, Trachea midline Cardiovascular: positive: Regular rate & rhythm, No murmur, No gallop Peripheral Pulses: positive: 2+ Abdomen: positive: Non-tender, No organomegaly, Nml bowel sounds, No distention Rectal: positive: Stool - heme NEG Back: positive: Nml inspection Skin: positive: Color nml, Warm, Dry, Other (rash to mid left flank around to mid back) Extremities: positive: Full ROM, Nml appearance, No pedal edema Neurologic/Psychiatric: positive: Oriented x3, CN's nml (2-12), Motor nml, Sensation nml, Mood/affect nml - LABS Result Diagrams: 09/16/16 04:50 09/16/16 04:50 Other Lab Results: Abnormal Lab Results 09/14/16 09/14/16 09/14/16 05:00 22:42 22:42 WBC 12.5 x10^3/uL H x10^3/uL 13.1 x10^3/uL H x10^3/uL (4.8-10.8) (4.8-10.8) MPV 7.3 fL L fL 7.6 fL L fL (7.9-10.8) (7.9-10.8) Neut # 7.3 10^3/uL H 10^3/uL 9.9 10^3/uL H 10^3/uL (1.5-6.6) (1.5-6.6) Lymph # 4.0 10^3/uL H 10^3/uL (1.5-3.5) Baso # 0.2 10^3/uL H 10^3/uL (0.0-0.1) Chloride 97 mmol/L L mmol/L (101-111) Glucose Total Protein 8.5 g/dL H g/dL (6.7-8.2) 09/16/16 09/16/16 04:50 04:50 WBC MPV 7.2 fL L fL (7.9-10.8) Neut # Lymph # Baso # Chloride Glucose 133 mg/dL H mg/dL (70-100) Total Protein - FOLLOW UP Follow Up: Patient was instructed to followup with her primary care provider in 1 week of discharge. She verbally understood all instructions given and was safe to discharge home with family Time spent with patient at discharge was 40 minutes for education and assessments"
[2016-09-16] MEDS ORDERED: predniSONE 20 MG TABLET PO SCH (08:00)
[2016-09-16] MEDS: oxyCODONE 5 MG TABLET PO PRN (08:16)
[2016-09-16] MEDS: POLYETHYLENE GLYCOL 3350 17 GM PACKET PO SCH (08:17)
[2016-09-16] MEDS: ENOXAPARIN 40 MG/0.4 ML SYRINGE SUBQ SCH (08:17)
[2016-09-16] MEDS ORDERED: SERTRALINE 50 MG TABLET PO SCH (09:00)
[2016-09-17 13:16] LABS: ANA SCREEN NEGATIVE (NEGATIVE)
== END 2016-09-16 12:20 | disposition home or self-care (01) ==
LOC: ED 20:19 → MS3 23:56 → ICU 09-15 01:21
PROVIDERS: ADMIT Internal Medicine; ATTEND Nurse Practitioner
DX: B02.9 Zoster without complications (principal); G43.909 Migraine, unspecified, not intractable, without status migrainosus; M35.9 Systemic involvement of connective tissue, unspecified; E86.0 Dehydration; Q74.0 Other congenital malformations of upper limb(s), including shoulder girdle; F41.9 Anxiety disorder, unspecified; F32.9 Major depressive disorder, single episode, unspecified; Z85.72 Personal history of non-Hodgkin lymphomas; Z92.21 Personal history of antineoplastic chemotherapy; Z92.3 Personal history of irradiation; Z87.448 Personal history of other diseases of urinary system; Z87.01 Personal history of pneumonia (recurrent)
CPT/HCPCS: 36415; 80048; 80053; 81001; 81003; 83605; 83690; 83735; 84100; 84703; 85025; 85610; 85651; 86038; 86140; 87040; 96361; 96365; 96366; 96372; 96375; 96376; 99283; 99284; 99285; A9270; G0378; J0131; J0133; J1170; J1650; J7512; 87086; 96374

== ENCOUNTER 2017-09-17 11:46 | Emergency (ER) | payer MEDICAID ==
[2017-09-17] MEDS ORDERED: HYDROcod/ACETAM 5/325 MG TABLET PO STA (12:13)
--- NOTE | 2017-09-17 12:15 | ED Physician Documentation ---
PD HPI LOWER EXT INJURY - Stated complaint Stated Complaint: R FOOT INJ - Chief complaint Chief Complaint: Ext Problem - History obtained from History obtained from: Patient - History of Present Illness PD HPI LOW EXT INJURY LOCATION: Right, Foot Type of injury: Blunt / blow (A pack and play fell on it) Where injury occurred: Home Timing - onset: Today Timing - details: Abrupt onset Improved by: Rest Worsened by: Moving Associated symptoms: Swelling Similar symptoms before: Has not had sx before Review of Systems Skin: reports: Reviewed and negative Musculoskeletal: reports: Pain with weight bearing. denies: Neck pain, Back pain Neurologic: denies: Headache, Head injury, LOC PD PAST MEDICAL HISTORY - Past Medical History Past Medical History: Yes Cardiovascular: None Respiratory: None Endocrine/Autoimmune: None Psych: Depression, Anxiety - Past Surgical History Past Surgical History: Yes - Present Medications Home Medications: Ambulatory Orders Medication Instructions Recorded Confirmed Citalopram [CeleXA] 20 mg 09/17/17 HYDROcod/ACETAM 5/325 [[place] 5/325] 1 - 2 ea PO Q6H PRN #7 tablet 09/17/17 Ibuprofen [Motrin] 800 mg PO Q8H PRN #20 tablet 09/17/17 hydrOXYzine HCl [Hydroxyzine HCl] 10 mg 09/17/17 - Allergies Allergies/Adverse Reactions: Allergies Allergy/AdvReac Type Severity Reaction Status Date / Time Penicillins Allergy Unknown Verified 09/08/16 17:49 Sulfa (Sulfonamide Allergy Unknown Verified 09/08/16 17:49 Antibiotics) - Social History Does the pt smoke?: No Smoking Status: Never smoker Does the pt drink ETOH?: Yes Does the pt have substance abuse?: No - Immunizations Immunizations are current?: Yes - POLST Patient has POLST: No POLST Status: Full Code PD ED PE NORMAL - Vitals Vital signs reviewed: Yes - General General: Alert and oriented X 3, No acute distress - Extremities Extremities: Other (R kiki: TTP prox 1st/2nd MTs, no deformity, nl pulses) - Neuro Neuro: Alert and oriented X 3, Normal speech Results - Vitals Vitals: Vital Signs - 24 hr 09/17/17 11:52 Temperature 36.9 C Heart Rate 80 Respiratory 16 Rate Blood Pressure 102/62 O2 Saturation 100 Oxygen O2 Source Room air - Rads (name of study) 3v R foot Radiology: EMP read contemporaneously (normal) PD MEDICAL DECISION MAKING - Sepsis Event Vital Signs: Vital Signs - 24 hr 09/17/17 11:52 Temperature 36.9 C Heart Rate 80 Respiratory 16 Rate Blood Pressure 102/62 O2 Saturation 100 Oxygen O2 Source Room air Departure - Departure Disposition: 01 Home, Self Care Clinical Impression: Contusion of right foot Qualifiers: Encounter type: initial encounter Qualified Code(s): S90.31XA - Contusion of right foot, initial encounter Condition: Good Record reviewed to determine appropriate education?: Yes Instructions: ED Contusion Foot Prescriptions: HYDROcod/ACETAM 5/325 [[place] 5/325] 1 - 2 ea PO Q6H PRN #7 tablet PRN Reason: Pain Ibuprofen [Motrin] 800 mg PO Q8H PRN #20 tablet PRN Reason: PAIN &/OR FEVER Comments: Recheck with your doctor in a week if not better, return if worse or if new symptoms develop. Do not drink or drive while taking narcotic pain medication. Note that many narcotic pain relievers also contain Tylenol/acetaminophen. Please ensure that your total dose of acetaminophen from all sources does not exceed 3 g (3000 mg) per day. You may get constipated while on this medication. Take a stool softener such as Colace twice a day while you are on it. Also add an [id number]-smr-[id number] laxative such as senna or MiraLAX on any day that you do not have a bowel movement. If you received a narcotic pain medication or sedative while in the emergency department, do not drive for the next 24 hours.
--- NOTE | 2017-09-17 13:03 | XRAY Report ---
Procedure Date: 09/17/2017 Accession Number: [id number] / [id number] Procedure: XR - Foot 3 View RT CPT Code: FULL RESULT: EXAM: RIGHT FOOT RADIOGRAPHY EXAM DATE: 09/17/2017 12:27 PM. CLINICAL HISTORY: R foot inj. COMPARISON: 04/29/2016. TECHNIQUE: 3 views. FINDINGS: Bones: Normal. No fractures or bone lesions. Joints: Normal. No subluxations. Soft Tissues: Normal. No soft tissue swelling. IMPRESSION: Normal foot radiography. RADIA
[2017-09-17 13:26] VITALS: BP 106/66
== END 2017-09-17 13:26 | disposition home or self-care (01) ==
LOC: ED 11:46
DX: S90.31XA Contusion of right foot, initial encounter (principal); W22.8XXA Striking against or struck by other objects, initial encounter; Y92.009 Unspecified place in unspecified non-institutional (private) residence as the place of occurrence of the external cause
CPT/HCPCS: 73630; 99283; A9270

== ENCOUNTER 2018-04-22 22:04 | Emergency (ER) | payer MEDICAID ==
[2018-04-22] MEDS ORDERED: ONDANSETRON 4 MG/2 ML VIAL IVP STA (22:22)
[2018-04-22] MEDS ORDERED: SODIUM CHLORIDE 0.9% 1,000 ML IV STA (22:22)
[2018-04-22 23:09] LABS: BASOPHILS # (AUTO) 0.1 10^3/uL (0.0-0.1)
[2018-04-22 23:13] LABS: BASOPHILS % (AUTO) 0.5 %; EOSINOPHILS % (AUTO) 0.2 %; HGB - HEMOGLOBIN 11.7 g/dL (12.0-16.0); LYMPHOCYTES # (AUTO) 1.4 10^3/uL (1.5-3.5); LYMPHOCYTES % (AUTO) 9.5 %; MEAN CORPUSCULAR HEMOGLOBIN 29.9 pg (27.0-31.0); MEAN CORPUSCULAR HGB CONC 33.2 g/dL (32.0-36.0); MONOCYTES # (AUTO) 0.9 10^3/uL (0.0-1.0); MONOCYTES % (AUTO) 6.1 %; NEUTROPHILS # (AUTO) 12.2 10^3/uL (1.5-6.6); NEUTROPHILS % (AUTO) 83.7 %; PLT - PLATELET COUNT 343 10^3/uL (130-450); RED CELL DISTRIBUTION WIDTH 13.4 % (12.0-15.0); WHITE BLOOD COUNT 14.6 x10^3/uL (4.8-10.8)
[2018-04-22 23:23] LABS: ALBUMIN 4.3 g/dL (3.2-5.5); ALBUMIN/GLOBULIN RATIO 1.4 (1.0-2.2); BILIRUBIN,TOTAL 1.2 mg/dL (0.2-1.0); CREATININE 0.6 mg/dL (0.4-1.0); TOTAL PROTEIN 7.4 g/dL (6.7-8.2)
[2018-04-22 23:50] LABS: BILIRUBIN,URINE NEGATIVE (NEGATIVE); GLUCOSE, URINE (UA) NEGATIVE (NEGATIVE); KETONES,URINE (UA) TRACE mg/dL (NEGATIVE); LEUKOCYTE ESTERASE, URINE TRACE (NEGATIVE); NITRITE,URINE NEGATIVE (NEGATIVE); OCCULT BLOOD,URINE NEGATIVE (NEGATIVE); PH,URINE 6.5 PH (5.0-7.5); PROTEIN,URINE NEGATIVE (NEGATIVE); UROBILINOGEN,URINE 0.2 (NORMAL) E.U./dL (NORMAL)
[2018-04-22 23:51] LABS: CLARITY,URINE CLEAR (CLEAR)
[2018-04-22 23:52] LABS: HCG UR QUAL NEGATIVE
[2018-04-22 23:58] LABS: BACTERIA,URINE Rare /HPF (None Seen); RBC,URINE 0-5 /HPF (0-5); SQUAMOUS EPITHELIAL CELL,UR FEW Squamous (<= Few)
[2018-04-23] MEDS ORDERED: DEXAMETHASONE 10 MG/ML VIAL IVP STA (00:04)
[2018-04-23] MEDS ORDERED: KETOROLAC 30 MG/ML VIAL IVP STA (00:04)
[2018-04-23] MEDS ORDERED: AZITHROMYCIN 250 MG TABLET PO STA (00:07)
--- NOTE | 2018-04-23 00:07 | ED Physician Documentation ---
PD HPI URI - Stated complaint Stated Complaint: FEVER VOMITING - Chief complaint Chief Complaint: Abd Pain - History obtained from History obtained from: Patient, Family - History of Present Illness Timing - onset: Today Timing duration: Hours Timing details: Abrupt onset, Still present Associated symptoms: Fever, Chills, Sweats, Ear pain, Nasal congestion, Rhinorrhea, Sore throat, Dry cough, Dyspnea Contributing factors: Sick contact Improves by: Rest, Medication Worsened by: Activity Similar symptoms before: Has not had sx before Recently seen: Not recently seen - Additional information Additional information: Previously well 32-year-old female has developed a fever cough and congestion today. Symptoms have come on rapidly she feels ill and has some low back pain associated with all of this. She has had some nausea she has not had any vomiting she does work at a daycare. Review of Systems Constitutional: reports: Fever, Chills, Myalgias, Fatigue, Sweats Eyes: denies: Decreased vision Ears: reports: Ear pain Nose: reports: Rhinorrhea / runny nose, Congestion Throat: reports: Sore throat Cardiac: denies: Chest pain / pressure, Palpitations Respiratory: reports: Cough. denies: Dyspnea GI: reports: Nausea. denies: Vomiting : denies: Dysuria, Frequency Musculoskeletal: reports: Back pain PD PAST MEDICAL HISTORY - Past Medical History Past Medical History: Yes Cardiovascular: None Respiratory: None Endocrine/Autoimmune: None Psych: Depression, Anxiety - Past Surgical History Past Surgical History: Yes - Present Medications Home Medications: Ambulatory Orders Medication Instructions Recorded Confirmed Lorazepam [Ativan] 1 tab PO DAILY PRN 04/22/18 04/22/18 Azithromycin [Zithromax] 250 mg PO DAILY #4 tablet 04/23/18 - Allergies Allergies/Adverse Reactions: Allergies Allergy/AdvReac Type Severity Reaction Status Date / Time Penicillins Allergy Unknown Verified 04/22/18 22:55 Sulfa (Sulfonamide Allergy Unknown Verified 04/22/18 22:55 Antibiotics) - Social History Does the pt smoke?: No Smoking Status: Never smoker Does the pt drink ETOH?: Yes Does the pt have substance abuse?: No - Immunizations Immunizations are current?: Yes - POLST Patient has POLST: No POLST Status: Full Code PD ED PE NORMAL - Vitals Vital signs reviewed: Yes (febrile, tachy) - General General: Alert and oriented X 3, Well developed/nourished, Other (appears to be in pain ) - HEENT HEENT: Atraumatic, PERRL, EOMI, Other (right TM is inflamed with retained landmarks the left is less invovled. ) - Neck Neck: Supple, no meningeal sign, No bony TTP - Cardiac Cardiac: RRR, No murmur, Other (after hydration) - Respiratory Respiratory: No respiratory distress, Clear bilaterally - Abdomen Abdomen: Soft, Non tender - Back Back: No CVA TTP, No spinal TTP, Other (lower lumbar paraspinous muscle tenderness ) - Derm Derm: Normal color, Warm and dry, No rash - Extremities Extremities: No edema, Other (congenital absence of left forearm. ) - Neuro Neuro: Alert and oriented X 3, No motor deficit, No sensory deficit, Normal speech Eye Opening: Spontaneous Motor: Obeys Commands Verbal: Oriented GCS Score: 15 - Psych Psych: Normal mood, Normal affect Results - Vitals Vitals: Vital Signs - 24 hr 04/22/18 04/22/18 04/22/18 22:15 23:34 23:52 Temperature 39.3 C H 37.9 C H Heart Rate 143 H 99 63 Respiratory 18 16 16 Rate Blood Pressure 101/56 L 110/58 L 110/67 O2 Saturation 97 96 99 Oxygen O2 Source Room air - Labs Labs: Laboratory Tests 04/22/18 04/22/18 04/22/18 22:24 22:50 22:50 WBC 14.6 H RBC 3.90 L Hgb 11.7 L Hct 35.1 L MCV 90.0 MCH 29.9 MCHC 33.2 RDW 13.4 Plt Count 343 MPV 8.0 Neut # (Auto) 12.2 H Lymph # (Auto) 1.4 L [place] # (Auto) 0.9 Eos # (Auto) 0.0 Baso # (Auto) 0.1 Absolute Nucleated RBC 0.00 Nucleated RBC % 0.0 Sodium 133 L Potassium 2.9 L Chloride 101 Carbon Dioxide 24 Anion Gap 8.0 BUN 11 Creatinine 0.6 Estimated GFR (MDRD) 115 Glucose 100 Calcium 9.0 Total Bilirubin 1.2 H AST 18 ALT 14 Alkaline Phosphatase 52 Total Protein 7.4 Albumin 4.3 Globulin 3.1 Albumin/Globulin Ratio 1.4 Lipase 33 Urine Color Urine Clarity Urine pH Ur Specific [place] Urine Protein Urine Glucose (UA) Urine Ketones Urine Occult Blood Urine Nitrite Urine Bilirubin Urine Urobilinogen Ur Leukocyte Esterase Urine RBC Urine WBC Ur Squamous Epith Cells Urine Bacteria Ur Microscopic Review Urine Culture Comments Urine HCG, Qual Influenza A (Rapid) Negative Influenza B (Rapid) Negative 04/22/18 23:40 WBC RBC Hgb Hct MCV MCH MCHC RDW Plt Count MPV Neut # (Auto) Lymph # (Auto) [place] # (Auto) Eos # (Auto) Baso # (Auto) Absolute Nucleated RBC Nucleated RBC % Sodium Potassium Chloride Carbon Dioxide Anion Gap BUN Creatinine Estimated GFR (MDRD) Glucose Calcium Total Bilirubin AST ALT Alkaline Phosphatase Total Protein Albumin Globulin Albumin/Globulin Ratio Lipase Urine Color YELLOW Urine Clarity CLEAR Urine pH 6.5 Ur Specific [place] 1.010 Urine Protein NEGATIVE Urine Glucose (UA) NEGATIVE Urine Ketones TRACE Urine Occult Blood NEGATIVE Urine Nitrite NEGATIVE Urine Bilirubin NEGATIVE Urine Urobilinogen 0.2 (NORMAL) Ur Leukocyte Esterase TRACE H Urine RBC 0-5 Urine WBC 0-3 Ur Squamous Epith Cells FEW Squamous Urine Bacteria Rare Ur Microscopic Review INDICATED Urine Culture Comments INDICATED Urine HCG, Qual NEGATIVE Influenza A (Rapid) Influenza B (Rapid) Procedures - IVC sono (time) 0000 Bedside IVC sono: IVC measures (cm) (1.95), Euvolemia (after one liter is in) PD MEDICAL DECISION MAKING - ED course Complexity details: reviewed old records, reviewed results, re-evaluated patient, considered differential, d/w patient, d/w family ED course: 32-year-old female with acute onset of illness today has cough congestion ear pain and nausea and she has a negative influenza swab. Her symptoms are consistent with influenza. She does however have inflammation in the right middle ear as well and she works at a daycare. She is treated for otitis as well. She is given dexamethasone 10 mg intravenously and Toradol 30 mg intravenously for her low back pain and she is given a azithromycin as an antibiotic. Departure - Departure Disposition: 01 Home, Self Care Clinical Impression: Dehydration Otitis media Qualifiers: Otitis media type: suppurative Chronicity: acute Laterality: right Recurrence: not specified as recurrent Spontaneous tympanic membrane rupture: without spontaneous rupture Qualified Code(s): H66.001 - Acute suppurative otitis media without spontaneous rupture of ear drum, right ear Condition: Stable Instructions: ED Dehydration, ED Otitis Media Acute Adult Follow-Up: [facility] [Provider Group] Prescriptions: Azithromycin [Zithromax] 250 mg PO DAILY #4 tablet Forms: Activity restrictions
[2018-04-23 01:36] VITALS: BP 115/63
== END 2018-04-23 00:50 | disposition home or self-care (01) ==
LOC: ED 22:04
DX: E86.0 Dehydration (principal); H66.001 Acute suppurative otitis media without spontaneous rupture of ear drum, right ear
CPT/HCPCS: 36415; 80053; 81001; 81025; 83690; 85025; 87086; 87275; 87276; 96361; 96374; 96375; 99283; 99284; A9270; 81003

== ENCOUNTER 2019-04-10 13:02 | Emergency (ER) | payer MEDICAID ==
[2019-04-10] MEDS ORDERED: SUMAtriptan 6 MG/0.5 ML VIAL SUBQ STA (16:00)
--- NOTE | 2019-04-10 16:05 | ED Physician Documentation ---
PD HPI HEADACHE - Stated complaint Stated Complaint: MIGRAINE, VOMITING - Chief complaint Chief Complaint: Neuro - History obtained from History obtained from: Patient, Family - History of Present Illness Timing - onset: Enter time (829), Today Timing - onset during: Rest Timing - duration: Hours Timing - details: Abrupt onset, Still present Location: Global Quality: Throbbing Associated symptoms: Nausea, Vomiting, Vision changes. No: Fever, Stiff neck, Weakness, Numbness, Syncope, Seizure, Eye pain Improved by: Rest, Dark room, Quiet Worsened by: Light, Noise, Moving Contributing factors: No: Anticoagulated Similar symptoms before: Has not had sx before Recently seen: Not recently seen - Additional information Additional information: 33-year-old female with a prior history of stage IV non-Hodgkin's lymphoma and congenital shortening of the left forearm has developed a severe headache this morning on awakening. She has had some nausea vomiting and photophobia. She does not have a history previously of migraine headache. She has had headaches previously and she has had vomiting with these previously. She is under a significant amount of stress. Review of Systems Constitutional: denies: Fever, Chills, Myalgias Eyes: reports: Photophobia. denies: Decreased vision Ears: denies: Ear pain Nose: denies: Rhinorrhea / runny nose, Congestion Throat: denies: Sore throat Cardiac: denies: Chest pain / pressure, Palpitations Respiratory: denies: Dyspnea GI: reports: Nausea, Vomiting. denies: Abdominal Pain : denies: Dysuria, Frequency Skin: denies: Rash, Lesions Musculoskeletal: denies: Neck pain, Back pain, Extremity pain Neurologic: reports: Headache. 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 Pt reports having problems with memory within last 2 months and finding and saying words within last week and was told by therapist that that is r/t trauma pt experienced. - Past Surgical History Past Surgical History: Yes - Present Medications Home Medications: Ambulatory Orders Medication Instructions Recorded Confirmed Lorazepam [Ativan] 1 tab PO DAILY PRN 04/22/18 04/22/18 Azithromycin [Zithromax] 250 mg PO DAILY #4 tablet 04/23/18 - Allergies Allergies/Adverse Reactions: Allergies Allergy/AdvReac Type Severity Reaction Status Date / Time Penicillins Allergy Unknown Verified 04/10/19 13:08 Sulfa (Sulfonamide Allergy Unknown Verified 04/10/19 13:08 Antibiotics) - Social History Does the pt smoke?: No Smoking Status: Never smoker Does the pt drink ETOH?: Yes Does the pt have substance abuse?: No - Immunizations Immunizations are current?: Yes - POLST Patient has POLST: No POLST Status: Full Code PD ED PE NORMAL - Vitals Vital signs reviewed: Yes (hypertensive ) - General General: Alert and oriented X 3, Well developed/nourished - HEENT HEENT: Atraumatic, PERRL, EOMI, Ears normal, Moist mucous membranes, Pharynx benign, Dentition benign - Neck Neck: Supple, no meningeal sign, No bony TTP - Cardiac Cardiac: RRR, No murmur - Respiratory Respiratory: No respiratory distress, Clear bilaterally - Abdomen Abdomen: Soft, Non tender - Derm Derm: Normal color, Warm and dry, No rash - Extremities Extremities: No edema, Other (there is congential absence of the left forearm ) - Neuro Neuro: Alert and oriented X 3, sugar controller 2-12 intact, No motor deficit, No sensory deficit, Normal speech Eye Opening: Spontaneous Motor: Obeys Commands Verbal: Oriented GCS Score: 15 - Psych Psych: Normal mood, Normal affect Results - Vitals Vitals: Vital Signs - 24 hr 04/10/19 04/10/19 13:08 15:39 Temperature 36.8 C Heart Rate 87 94 Respiratory 18 18 Rate Blood Pressure 139/71 H 126/59 L O2 Saturation 96 99 Oxygen O2 Source Room air PD MEDICAL DECISION MAKING - ED course Complexity details: reviewed results, re-evaluated patient, considered differential, d/w patient, d/w family ED course: 33-year-old female with acute onset of severe throbbing headache nausea and vomiting photophobia appears to have a migrainous type of headache. She is administered sumatriptan 6 mg subcutaneous. She has some improvement in her headache she does not have resolution in she would like to try rescue therapy. She is administered a liter of saline 30 of Toradol 10 of Compazine 25 of Benadryl 10 of dexamethasone. Patient has good response with this with resolution of her headache. Departure - Departure Disposition: 01 Home, Self Care Clinical Impression: Migraine Qualifiers: Migraine type: without aura Status migrainosus presence: without status migrainosus Intractability: not intractable Qualified Code(s): G43.009 - Migraine without aura, not intractable, without status migrainosus Condition: Stable Instructions: ED Headache Migraine Follow-Up: Your, doctor [Other]
[2019-04-10] MEDS ORDERED: LORazepam 1 MG TABLET PO STA (16:47)
[2019-04-10] MEDS ORDERED: PROCHLORPERAZINE 10 MG/2 ML VIAL IVP STA (17:08)
[2019-04-10] MEDS ORDERED: diphenhydrAMINE INJ 50 MG/ML VIAL IVP STA (17:08)
[2019-04-10] MEDS ORDERED: SODIUM CHLORIDE 0.9% 1,000 ML IV ONE (17:09)
[2019-04-10] MEDS ORDERED: DEXAMETHASONE 10 MG/ML VIAL IVP STA (17:09)
[2019-04-10] MEDS ORDERED: KETOROLAC 30 MG/ML VIAL IVP STA (17:09)
[2019-04-10 18:30] VITALS: BP 116/59
== END 2019-04-10 18:28 | disposition home or self-care (01) ==
LOC: ED 13:02
DX: G43.009 Migraine without aura, not intractable, without status migrainosus (principal)
CPT/HCPCS: 96361; 96372; 96374; 99283; 99284; J8499